=== PATIENT | male | born 1975 | race Caucasian/White ===

== ENCOUNTER → 2018-05-27 | Outpatient (CLI) | payer OTHER ==
--- NOTE | 2018-05-27 17:46 | PN ---
PROGRESS NOTE This is a 43-year-old male patient coming in for a followup regarding obstructive sleep apnea. The patient was diagnosed having CHE approximately 9 years ago at [facility]. Subsequently he was seen in our office and has been followed up in regard to his sleep apnea in our office. My last evaluation of this patient was in March 2015. At that time, the patient underwent a CPAP titration and he was titrated to a CPAP pressure of 10 cm of water and his pressure was updated. Since then, his treatment has been successful. No snoring. He is waking up refreshed and alert during the day. He is going to bed around 10:30 p.m., waking at 5:30 a.m. in the morning. It takes him a few minutes to fall asleep and wakes up very refreshed. He denies quitting breathing while on CPAP therapy. He is using the Eson nose mask. Denies waking up gasping for air. No restlessness in lower extremities. No sleepwalking or sleep talking. No anxiety or depression. No difficulties with concentration or memory and his [place] score is only at 9. His weight has been stable over the years and currently he is weighing around 153 pounds, which is only 3 pounds higher compared 2015. REVIEW OF SYSTEMS: A 12-point review of system was done. Positive findings are mentioned above in history of present illness. BP is 148/85, pulse 64, respirations 16, temperature 98.6, saturation 97% on room air. Weight is 153. Height is 5 feet 9 inches, neck size 15 inches, BMI 22.3. GENERAL APPEARANCE: Calm, comfortable. Head is atraumatic, normocephalic. Neck is supple. There is no JVD. No goiter or neck mass. LUNGS: Clear to auscultation. HEART: Sounds are regular rate and rhythm. Normal S1, S2. No S3. No murmurs. ABDOMEN: Soft, nontender. No organomegaly. EXTREMITIES: No edema. No cyanosis or clubbing. NEUROLOGICAL: AO x3. There are no focal neurological deficits. PSYCHIATRIC: Negative for any anxiety or depression. IMPRESSION: 1. Obstructive sleep apnea, currently on CPAP with a pressure of 10 cm of water. Treatment remains successful as the patient utilizes an alternative older generation Respironics REM Star set at a pressure of 10 cm of water. He is using an Eson nose mask. 2. Hypersomnia, improved. Current [place] score of 9. PLAN: The patient expressed wishes to update his CPAP machine. I think we can update him to a ResMed AirSense unit at a pressure of 10 cm of water. His treatment has been successful with this level of pressure and there was no need to undergo a CPAP titration at this point in time and the machine will be reordered through his DME. Will keep him on an Eson nose mask. He is already implementing good sleep hygiene measures. The treatment has been successful. If his new CPAP machine is delivered, the patient will need to see me back in 30-90 days for a compliancy check and a followup. We will continue to follow and make further recommendations based on his overall progress. SHIRA / MARYCHUY: [id number] /
== END | disposition home or self-care (01) ==
LOC: SLEEP 16:20
PROVIDERS: ATTEND Internal Medicine Critical Care Medicine
DX: G47.33 Obstructive sleep apnea (adult) (pediatric) (principal); Z99.89 Dependence on other enabling machines and devices
CPT/HCPCS: 99211

== ENCOUNTER → 2018-09-16 | Outpatient (CLI) | payer OTHER ==
--- NOTE | 2018-09-16 17:09 | PN ---
PROGRESS NOTE This is a 43-year-old male patient with an established diagnosis of sleep apnea coming to see me for a followup. 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 He was diagnosed having obstructive sleep apnea through the [facility] many years back. He was using an older-generation REMStar CPAP unit which was set at a pressure of 10 cm of water. I was able to update his machine, and I gave him a ResMed AirSense CPAP unit which was set at a pressure of 10 cm of water. I also kept in mind that he is on a nose mask. On today's evaluation, the patient is coming in for a compliancy check. He likes his new machine. He is very compliant. He is wearing it every night. His CPAP use for more than 4 hours is 100%. His average CPAP usage is around 8 hours per night. Leak factor is 6 L/minute. His AHI while on treatment is down to 1.8. No weight gain. No weight loss. No daytime sleepiness. He is able to function and perform all of his day-to-day activities without feeling drowsy or sleepy. REVIEW OF SYSTEMS: Twelve-point review of systems was done. Positive findings were all mentioned above in the history of present illness. PHYSICAL EXAMINATION: BP is 153/76, pulse 74, respirations 16, temperature 98.3. Saturation is 96% on room air. [place] score is 7. Weight is 154. GENERAL APPEARANCE: Calm, comfortable. Head is atraumatic, normocephalic. NECK: Supple. There is no JVD. No goiter or neck masses. LUNGS: Diminished. Otherwise clear. HEART: Heart sounds are regular rate and rhythm. Normal S1, S2. No S3, S4. No murmurs. ABDOMEN: Soft, nontender. No organomegaly. EXTREMITIES: No edema. No cyanosis or clubbing. NEUROLOGIC: The patient is alert and oriented x3. No focal neurological deficit. PSYCHIATRIC: Negative for anxiety or depression. IMPRESSION: 1. Obstructive sleep apnea, currently on CPAP at the pressure of 10 cm of water. The patient is compliant and continues to benefit from treatment. 2. Hypersomnia, recovered. [place] score is down to 7. PLAN: Compliance data were checked. The patient is doing extremely well. He is very compliant. He is benefitting from the treatment. Encourage use of CPAP unit. No need for any adjustments. Continue the Eson nose mask. See me back in a year's time, earlier if needed. MMODL / IJN: [id number] /
== END | disposition home or self-care (01) ==
LOC: SLEEP 15:41
PROVIDERS: ATTEND Internal Medicine Critical Care Medicine
DX: G47.33 Obstructive sleep apnea (adult) (pediatric) (principal); Z99.89 Dependence on other enabling machines and devices

== ENCOUNTER 2022-09-24 07:52 | Emergency (ER) | payer OTHER ==
[2022-09-24 08:00] VITALS: TEMP 98
[2022-09-24] MEDS ORDERED: SODIUM CHLORIDE 0.9% 1,000 ML IV STA (08:12)
[2022-09-24] MEDS ORDERED: KETOROLAC 15 MG/ML 1 ML VIAL IVP STA (08:12)
[2022-09-24] MEDS ORDERED: MORPHINE SULFATE 2 MG/ML SYRINGE IVP STA ×2 (08:13→09:26)
[2022-09-24] MEDS ORDERED: ONDANSETRON 4 MG/2 ML VIAL IVP STA ×2 (08:13→09:26)
--- NOTE | 2022-09-24 08:19 | ED ---
Back Pain HPI - General Chief Complaint: Back Pain/Injury Stated Complaint: back pain Time Seen by Provider: 09/24/22 08:01 Source: patient, family, RN notes reviewed Limitations: no limitations - History of Present Illness Initial Comments: This is a 47-year-old male who presents to the emergency department for left flank pain. States that this started last night and has since persisted, however it is occurring in an intermittent nature. The pain wraps around into the left upper to mid abdomen. He does have a history of kidney stones, most recently in 2007. This did pass on its own and he did not require removal. States that the pain feels the same. Also reports blood in the urine. He is nauseous but denies any vomiting. Denies any fevers, chills, sore throat, cough, dyspnea, chest pain, palpitations, vomiting, diarrhea, or headaches. MD Complaint: back pain Onset/Timin -: days(s) Similar Symptoms Previously: Yes Radiation: abdomen Associated Symptoms: nausea/vomiting - Related Data Previous Rx's Medication Instructions Recorded HYDROcodone/APAP 5-325MG [[place] 1 tab PO Q6HR PRN 3 Days #12 tab 09/24/22 5-325] Ketorolac [Toradol] 10 mg PO Q6HR PRN #12 tab 09/24/22 Ondansetron Odt [Zofran Odt] 4 mg PO Q8HR PRN #15 tab 09/24/22 Tamsulosin [Flomax] 0.4 mg PO DAILY #5 cap 09/24/22 Allergies Allergy/AdvReac Type Severity Reaction Status Date / Time No Known Allergies Allergy Verified 09/24/22 10:33 Review of Systems ROS Statement: Those systems with pertinent positive or pertinent negative responses have been documented in the HPI. ROS Other: All systems not noted in ROS Statement are negative. Past Medical History History of Any Multi-Drug Resistant Organisms: None Reported Past Surgical History: Hernia Repair Additional Past Surgical History / Comment(s): lumbar. Past Psychological History: No Psychological Hx Reported Smoking Status: Never smoker Past Alcohol Use History: Occasional Past Drug Use History: None Reported General Exam Limitations: no limitations General appearance: alert, in distress Head exam: Present: atraumatic, normocephalic, normal inspection Respiratory exam: Present: normal lung sounds bilaterally. Absent: respiratory distress, wheezes, rales, rhonchi, stridor Cardiovascular Exam: Present: regular rate, normal rhythm, normal heart sounds. Absent: systolic murmur, diastolic murmur, rubs, gallop, clicks GI/Abdominal exam: Present: soft, normal bowel sounds. Absent: distended, tenderness, guarding, rebound, rigid Back exam: Present: CVA tenderness (L) Neurological exam: Present: alert, oriented X3, CN II-XII intact Psychiatric exam: Present: normal affect, normal mood Skin exam: Present: warm, dry, intact, normal color. Absent: rash Course Vital Signs 09/24/22 09/24/22 07:57 11:00 Temperature 98 F Pulse Rate 81 75 Respiratory 18 16 Rate Blood Pressure 181/112 176/92 O2 Sat by Pulse 100 100 Oximetry Medical Decision Making - Medical Decision Making This is a 47-year-old male who presents to the emergency department for left flank pain. Was pt. sent in by a medical professional or institution? @ -No Did you speak to anyone other than the patient for history? @ -His Did you review nursing and triage notes? @ -Agree, accurate with regards to the patient's symptoms. Were old charts reviewed? @ -No Differential Diagnosis? @ -Differential Back Pain: Strain, zoster, cauda equina syndrome, epidural abscess, vertebral osteomyelitis, discitis, fracture, subluxation, disc herniation, DJD, spinal stenosis, dissection, AAA, pancreatitis, peptic ulcer disease, pyelonephritis, kidney stone, this is not meant to be an all-inclusive list. CT interpreted by me (1pt min.)? @ -Computed tomography scan of the abdomen and pelvis obtained. My interpret ation reveals a 5mm ureteral calculus on the left with moderate hydronephrosis and hydroureter. What testing was considered but not performed? (CT, X-rays, U/S, labs)? Why? @ -None What meds were considered but not given? Why? @ -None Did you discuss the management of the patient with other professionals? @ -No Did you reconcile home meds? @ -No Was smoking cessation discussed for >3mins.? @ -No Was critical care preformed (if so, how long)? @ -No Were there social determinants of health that impacted care today? How? (Homelessness, low income, unemployed, alcoholism, drug addiction, transportation, low edu. Level, literacy, decrease access to med. care, long term, rehab)? @ -No Was there de-escalation of care discussed even if they declined? (Discuss DNR or withdrawal of care, Hospice)? @ -No What co-morbidities impacted this encounter? (DM, HTN, Smoking, COPD, CAD, Can cer, CVA, Hep., AIDS, mental health diagnosis, sleep apnea, morbid obesity)? @ -None Was patient admitted / discharged? @ -Lab work obtained and found to be nonactionable. Urinalysis negative for signs of infection. Computed tomography scan of the abdomen and pelvis consistent with a ureteral calculus with hydronephrosis and hydroureter. Patient was given IV fluids, Zofran, Toradol, and morphine. He initially noted that this offered substantial improvement to his pain. However, an hour later he started to develop another episode of renal colic. I had intended on giving him oral [place], however he became very nauseous and needed medication to work much faster than oral pain medication could. When that pain improved, he was able to take PO [place] with Zofran and had no difficulty keeping this down and it did offer symptomatic relief. patient feels stable for discharge home. Rx for [place], toradol, zofran, and flomax provided with dosing instructions reviewed. Advised he take the [place] sparingly when his pain is the most severe. He is also instructed to avoid taking other over the counter antiinflammatories with the toradol. Information for urology follow up provided as well. Undiagnosed new problem with uncertain prognosis? @ -None Drug Therapy requiring intensive monitoring for toxicity (Heparin, Nitro, Insulin, Cardizem)? @ -None Were any procedures done? @ -None Diagnosis/symptom? @ -Left ureteral calculus Acute, or Chronic, or Acute on Chronic? @ -Acute Uncomplicated (without systemic symptoms) or Complicated (systemic symptoms)? @ -Complicated Side effects of treatment? @ -None Exacerbation, Progression, or Severe Exacerbation] @ -Not applicable Poses a threat to life or bodily function? @ -The pain is impacting his ability to function. Return precautions reviewed in depth, the patient is instructed to return to the emergency department with any new, worsening, or concerning symptoms. Patient verbalized understanding. This case was discussed in detail with the attending ED physician, Dr. Kumar. Presentation, findings, and treatment plan discussed in detail as well. - Lab Data Result diagrams: 09/24/22 08:37 09/24/22 08:37 Lab Results 09/24/22 09/24/22 09/24/22 Range/Units 08:37 08:37 08:37 WBC 4.5 (3.8-10.6) k/uL RBC 4.92 (4.30-5.90) m/uL Hgb 15.1 (13.0-17.5) gm/dL Hct 45.2 (39.0-53.0) % MCV 91.9 (80.0-100.0) fL MCH 30.6 (25.0-35.0) pg MCHC 33.3 (31.0-37.0) g/dL RDW 13.0 (11.5-15.5) % Plt Count 229 (150-450) k/uL MPV 7.5 Neutrophils % 49 % Lymphocytes % 34 % Monocytes % 9 % Eosinophils % 3 % Basophils % 1 % Neutrophils # 2.2 (1.3-7.7) k/uL Lymphocytes # 1.5 (1.0-4.8) k/uL Monocytes # 0.4 (0-1.0) k/uL Eosinophils # 0.1 (0-0.7) k/uL Basophils # 0.1 (0-0.2) k/uL Sodium 139 (137-145) mmol/L Potassium 4.1 (3.5-5.1) mmol/L Chloride 105 (98-107) mmol/L Carbon Dioxide 25 (22-30) mmol/L Anion Gap 9 mmol/L BUN 15 (9-20) mg/dL Creatinine 0.92 (0.66-1.25) mg/dL Est GFR (CKD-EPI)AfAm >90 (>60 ml/min/1.73 sqM) Est GFR (CKD-EPI)NonAf >90 (>60 ml/min/1.73 sqM) Glucose 118 H (74-99) mg/dL Calcium 10.1 (8.4-10.2) mg/dL Total Bilirubin 1.0 (0.2-1.3) mg/dL AST 27 (17-59) U/L ALT 14 (4-49) U/L Alkaline Phosphatase 63 (38-126) U/L Total Protein 7.8 (6.3-8.2) g/dL Albumin 4.9 (3.5-5.0) g/dL Amylase 93 (30-110) U/L Lipase 247 (23-300) U/L Urine Color Yellow Urine Appearance Clear (Clear) Urine pH 7.0 (5.0-8.0) Ur Specific [place] 1.014 (1.001-1.035) Urine Protein Trace H (Negative) Urine Glucose (UA) Negative (Negative) Urine Ketones Negative (Negative) Urine Blood Large H (Negative) Urine Nitrite Negative (Negative) Urine Bilirubin Negative (Negative) Urine Urobilinogen <2.0 (<2.0) mg/dL Ur Leukocyte Esterase Negative (Negative) Urine RBC >182 H (0-5) /hpf Urine WBC 2 (0-5) /hpf Amorphous Sediment Rare H (None) /hpf Urine Mucus Rare H (None) /hpf - Radiology Data Radiology results: report reviewed, image reviewed Disposition Clinical Impression: Ureteral calculus, left, Hydronephrosis, left Disposition: HOME SELF-CARE Instructions (If sedation given, give patient instructions): Kidney Stones (ED), Renal Colic (ED) Additional Instructions: Return to the emergency department with any new, worsening, or concerning symptoms. Take the Flomax daily until you know that you pass a stone or symptoms resolve. You can take the Toradol up to every 6 hours as needed for pa in, if you choose to take this do not take [id number] ibuprofen or other antiinflammatories. Take the [place] sparingly when your pain is the most severe and be aware that it may be sedating. You can take the Zofran up to every 8 hours as needed for nausea and vomiting. Contact urology as listed below for a follow-up appointment. Follow up with your primary care provider in 1-2 days. Prescriptions: Tamsulosin [Flomax] 0.4 mg PO DAILY #5 cap HYDROcodone/APAP 5-325MG [[place] 5-325] 1 tab PO Q6HR PRN 3 Days #12 tab PRN Reason: Pain Ketorolac [Toradol] 10 mg PO Q6HR PRN #12 tab PRN Reason: Pain Ondansetron Odt [Zofran Odt] 4 mg PO Q8HR PRN #15 tab PRN Reason: Nausea And Vomiting Is patient prescribed a controlled substance at d/c from ED?: Yes When asked, does pt state using other controlled substances?: No If prescribed controlled substance>3 days was MAPS reviewed?: Prescribed <3 Days Referrals: Antwan Faulkner DO [Primary Care Provider] - 1-2 days Pee Barry MD [STAFF PHYSICIAN] - 1-2 days
[2022-09-24 09:07] LABS: ALT 14 U/L (4-49); AST 27 U/L (17-59); African American GFR (CKD) >90 (>60 ml/min/1.73 sqM); Albumin 4.9 g/dL (3.5-5.0); Alkaline Phosphatase 63 U/L (38-126); Amylase 93 U/L (30-110); Anion Gap 9 mmol/L; Basophils # (A) 0.1 k/uL (0-0.2); Basophils % (A) 1 %; Blood Urea Nitrogen 15 mg/dL (9-20); Calcium 10.1 mg/dL (8.4-10.2); Carbon Dioxide 25 mmol/L (22-30); Chloride 105 mmol/L (98-107); Eosinophils # (A) 0.1 k/uL (0-0.7); Eosinophils % (A) 3 %; Glucose 118 mg/dL (74-99); HCT 45.2 % (39.0-53.0); HGB 15.1 gm/dL (13.0-17.5); Lipase 247 U/L (23-300); Lymphocytes # (A) 1.5 k/uL (1.0-4.8); Lymphocytes % (A) 34 %; MCH 30.6 pg (25.0-35.0); MCHC 33.3 g/dL (31.0-37.0); MCV 91.9 fL (80.0-100.0); Mean Platelet Volume 7.5; Monocytes # (A) 0.4 k/uL (0-1.0); Monocytes % (A) 9 %; Neutrophils # (A) 2.2 k/uL (1.3-7.7); Neutrophils % (A) 49 %; Non-African American GFR(CKD) >90 (>60 ml/min/1.73 sqM); Platelet Count 229 k/uL (150-450); Potassium 4.1 mmol/L (3.5-5.1); RBC 4.92 m/uL (4.30-5.90); Sodium 139 mmol/L (137-145); Total Protein 7.8 g/dL (6.3-8.2); WBC 4.5 k/uL (3.8-10.6)
--- NOTE | 2022-09-24 09:09 | CT ---
EXAMINATION TYPE: CT abdomen pelvis wo con DATE OF EXAM: 09/24/2022 COMPARISON: None INDICATION: Left flank pain DLP: 402.7 mGycm, Automated exposure control for dose reduction was used. CONTRAST: 0 mL of Isovue 300. Study performed without Oral Contrast TECHNIQUE: Axial images were obtained from above the diaphragm to the pubic rami in the axial plane a t 5 mm thick sections. Reconstructed images are reviewed on the computer in the coronal plane. FINDINGS: Limited CT sections are obtained the lung bases. The lung bases are clear. CT ABDOMEN: Liver: Normal Spleen: Normal Pancreas: Normal Adrenal glands: The adrenal glands are normal. Gallbladder: Normal Kidneys: Multiple bilateral renal stones are present. More numerous on the right. This includes a 0.3 cm calcification posterior and lateral right mid to lower kidney, a lateral mid right 0.3 cm calcifi cation and a 0.5 mm calcification superior anterior right kidney. Punctate calcifications are at the inferior pole left kidney. There is moderate left hydronephrosis and left hydroureter. Hydroureter ex tends to the distal ureter. Just above the ureterovesical junction is a nonobstructing 0.5 cm calcifi cation. Multiple additional phleboliths or within this region. Aorta: Normal Inferior vena cava: Normal. CT PELVIS: Loops of bowel within the abdomen and pelvis are normal. This study is performed without oral con trast limiting bowel evaluation. Appendix: Normal as visualized. Urinary bladder: Normal. Genitourinary structures: Prostate contains calcification Osseous structures: No suspicious lytic or sclerotic lesions. IMPRESSIONS: 1. Partially obstructing 0.5 cm distal left ureteral calcification moderate hydronephrosis and hydro ureter. 2. Multiple bilateral nonobstructing renal stones
[2022-09-24] MEDS ORDERED: HYDROcodone/APAP 5-325MG 1 EACH TAB PO STA ×2 (09:19→10:21)
[2022-09-24 09:28] LABS: Amorphous Sediment,Urine Rare /hpf; Appearance,Urine Clear (Clear); Bilirubin,Urine Negative (Negative); Blood,Urine Large (Negative); Color,Urine Yellow; Glucose,Urine (UA) Negative (Negative); Ketones,Urine Negative (Negative); Leukocyte Esterase,Urine Negative (Negative); Mucus,Urine Rare /hpf; Nitrite,Urine Negative (Negative); Protein,Urine Trace (Negative); RBC,Urine >182 /hpf (0-5); Specific Gravity,Urine 1.014 (1.001-1.035); Urobilinogen,Urine <2.0 mg/dL (<2.0); WBC,Urine 2 /hpf (0-5)
[2022-09-24] MEDS ORDERED: ONDANSETRON ODT 4 MG TAB PO STA (10:21)
[2022-09-24 12:04] VITALS: BP 176/92; PULSE 75; RESP 16
== END 2022-09-24 11:56 | disposition home or self-care (01) ==
LOC: EC 07:52
DX: N13.2 Hydronephrosis with renal and ureteral calculous obstruction (principal)
CPT/HCPCS: 36415; 80053; 82150; 83690; 85025; 81001; 74176; 99284; 96374; 96375 ×2; 96376 ×2; 96361; J2405; J2270; J1885

== ENCOUNTER → 2022-10-03 | Outpatient (CLI) | payer OTHER ==
--- NOTE | 2022-10-03 15:29 | XR ---
EXAMINATION TYPE: XR KUB DATE OF EXAM: 10/03/2022 COMPARISON: CT abdomen and pelvis 09/24/2022 HISTORY: Calculus of ureter. TECHNIQUE: Frontal view of the abdomen was obtained with 2 radiographs. FINDINGS: Small bowel demonstrates no evidence for dilatation or air fluid levels. Gas and fecal material is seen in non-distended colon. No convincing evidence for pneumoperitoneum. There are 5 renal calculi demonstrated within the right kidney with largest measuring up to 3 mm. No definitive left renal calculi. Multiple pelvic phleboliths redemonstrated. Previously seen distal lef t ureteral calculus is not visualized on today's exam. The lung bases are clear. The osseous structures are intact. IMPRESSION: Right renal calculi redemonstrated with previously demonstrated distal left ureteral calculus not vis ualized on today's exam.
== END | disposition home or self-care (01) ==
LOC: RADXRMAIN 14:26
PROVIDERS: ATTEND Urology
DX: N20.0 Calculus of kidney (principal)
CPT/HCPCS: 74018

== ENCOUNTER → 2024-12-25 | Outpatient (CLI) | payer OTHER ==
[2024-12-25 10:20] LABS: HCT 46.4 % (39.6-50.0); MCH 30.6 pg (27.0-32.0); MCHC 32.3 g/dL (32.0-37.0); MCV 94.7 FL (80.0-97.0); Mean Platelet Volume 10.3 FL (9.5-12.2); NRBC Per 100 WBC 0 X 10*3/uL (0.00-0.01); Platelet Count 210 X 10*3/uL (140-440); RDW 14.5 % (11.5-14.5)
[2024-12-25 11:48] LABS: ALT 10 U/L (10-49); AST 26 U/L (14-35); Albumin 4.6 g/dL (3.8-4.9); Albumin/Globulin Ratio 1.77 Ratio (1.60-3.17); Alkaline Phosphatase 71 U/L (41-126); BUN/Creat Ratio 23.25 Ratio (12.00-20.00); Blood Urea Nitrogen 18.6 mg/dL (9.0-27.0); Carbon Dioxide 25.2 mmol/L (21.6-31.8); Chloride 105 mmol/L (96-109); Chol/HDL Ratio 2.52 Ratio; Globulin 2.6 g/dL (1.6-3.3); Glucose 95 mg/dL (70-110); LDL Cholesterol,Calculated 125.5 mg/dL (0.0-131.0); Potassium 4.3 mmol/L (3.5-5.5); Prostate Specific Antigen 1.66 ng/mL (0.000-2.500); Sodium 143 mmol/L (135-145); T4, Free (Free Thyroxine) 1.13 ng/dL (0.80-1.80); Total Bilirubin 0.5 mg/dL (0.3-1.2); Total Protein 7.2 g/dL (6.2-8.2); VLDL Calculation 6.46 mg/dL (5.00-40.00)
[2024-12-25 12:38] LABS: Appearance,Urine Clear (Clear); Bilirubin,Urine Negative (Negative); Blood,Urine Negative (Negative); Color,Urine Yellow (Yellow); Ketones,Urine Negative (Negative); Nitrite,Urine Negative (Negative); Specific Gravity,Urine 1.003 (1.001-1.030); Urobilinogen,Urine 0.2 E.U./DL
== END | disposition home or self-care (01) ==
LOC: LABWHC1 07:06
PROVIDERS: ATTEND Family Medicine
DX: Z00.00 Encounter for general adult medical examination without abnormal findings (principal); R53.83 Other fatigue
CPT/HCPCS: 36415; 80053; 80061; 81003; 82306; 83525; 84153; 84402; 84403; 84439; 84443; 85027

== ENCOUNTER → 2025-01-11 | Outpatient (CLI) | payer OTHER ==
[2025-01-11 14:58] LABS: Basophils # (A) 0.05 X 10*3/uL (0.00-0.10); Basophils % (A) 1.1 %; Eosinophils # (A) 0.21 X 10*3/uL (0.04-0.35); Eosinophils % (A) 4.4 %; HCT 46.5 % (39.6-50.0); HGB 14.8 g/dL (13.0-17.0); Lymphocytes # (A) 1.66 X 10*3/uL (0.90-5.00); Lymphocytes % (A) 34.9 %; MCH 30.4 pg (27.0-32.0); MCHC 31.8 g/dL (32.0-37.0); MCV 95.5 FL (80.0-97.0); Monocytes # (A) 0.64 X 10*3/uL (0.20-1.00); Monocytes % (A) 13.4 %; NRBC Per 100 WBC 0 X 10*3/uL (0.00-0.01); Neutrophils # (A) 2.19 X 10*3/uL (1.80-7.70); Platelet Count 229 X 10*3/uL (140-440); RBC 4.87 X 10*6/uL (4.40-5.60); RDW 14.6 % (11.5-14.5); WBC 4.76 X 10*3/uL (4.50-10.00)
== END | disposition home or self-care (01) ==
LOC: LABWHC1 07:57
PROVIDERS: ATTEND Family Medicine
DX: D72.818 Other decreased white blood cell count (principal)
CPT/HCPCS: 36415; 85025